=== PATIENT | male | born 1970 | race Caucasian/White ===

== ENCOUNTER 2018-11-26 18:24 | Inpatient (IN) ==
[2018-11-26] MEDS ORDERED: Aspirin 325 MG TABLET PO ONE (20:05)
[2018-11-26 20:25] LABS: Basophils # 0.1 K/mcL (0.0-0.2); Basophils % 0.8 %; Eosinophils # 0.3 K/mcL (0.0-0.6); Hemoglobin 11.6 g/dL (12.9-16.9); Immature Granulocytes % 0.5 % (0-4); Lymphocytes # 3.1 K/mcL (0.6-4.6); Mean Corpuscular HGB Conc 32.2 g/dL (31.6-35.5); Mean Corpuscular Hemoglobin 29.6 pg (28.0-33.3); Mean Corpuscular Volume 91.8 fL (83.0-100.0); Mean Platelet Volume 10.8 fL (9.4-12.4); Monocytes # 0.9 K/mcL (0.0-1.3); Monocytes % 9.4 %; Neutrophils # 5.5 K/mcL (1.6-8.9); Platelet Count 265 K/mcL (140-400); Red Blood Count 3.92 M/mcL (4.19-5.50); Red Cell Distribution Width 13.8 % (11.5-14.5); Segmented Neutrophils % 55.3 %; White Blood Count 9.9 K/mcL (4.3-11.1)
[2018-11-26 20:31] LABS: Prothrombin Time 11.8 Seconds (9.4-12.1)
[2018-11-26 20:46] LABS: BUN/Creatinine Ratio 16 (6-26); Blood Urea Nitrogen 29 mg/dL (6-20); Calcium 9.2 mg/dL (8.6-10.3); Carbon Dioxide 23 mEq/L (23-29); Chloride 106 mEq/L (98-107); Glucose 99 mg/dL (70-105); Osmolality,Calculated 296 (280-300); Potassium 4.1 mEq/L (3.5-5.1); Sodium 140 mEq/L (136-145); Troponin I < 0.03 ng/mL (< 0.04); eGFR For African Americans 50 (> 60); eGFR For Non-African Americans 41 (> 60)
[2018-11-26] MEDS ORDERED: 0.9 % Sodium Chloride 1,000 ML IVC ONE (20:55)
[2018-11-27] MEDS ORDERED: Naloxone 0.4 MG/ML INJ IVP PRN (03:03)
[2018-11-27 04:02] LABS: Basophils # 0.1 K/mcL (0.0-0.2); Basophils % 0.8 %; Eosinophils # 0.3 K/mcL (0.0-0.6); Hematocrit 34.5 % (37.5-50.1); Hemoglobin 10.9 g/dL (12.9-16.9); Immature Granulocytes % 0.4 % (0-4); Lymphocytes % 37.7 %; Mean Corpuscular HGB Conc 31.6 g/dL (31.6-35.5); Mean Corpuscular Hemoglobin 29.6 pg (28.0-33.3); Mean Corpuscular Volume 93.8 fL (83.0-100.0); Mean Platelet Volume 10.8 fL (9.4-12.4); Monocytes # 0.6 K/mcL (0.0-1.3); Monocytes % 7.6 %; Neutrophils # 3.9 K/mcL (1.6-8.9); Platelet Count 237 K/mcL (140-400); Red Blood Count 3.68 M/mcL (4.19-5.50); Red Cell Distribution Width 13.7 % (11.5-14.5); Segmented Neutrophils % 49.5 %; White Blood Count 7.9 K/mcL (4.3-11.1)
[2018-11-27 04:12] LABS: Calcium 8.7 mg/dL (8.6-10.3); Potassium 4.2 mEq/L (3.5-5.1)
[2018-11-27] MEDS ORDERED: 0.9 % Sodium Chloride 1,000 ML IVC SCH (04:15)
[2018-11-27] MEDS ORDERED: D5% in 0.9% NACL 1,000 ML IVC SCH (08:15)
[2018-11-27] MEDS: Aspirin Enteric Coated 81 MG Tablet PO SCH (09:05)
[2018-11-27] MEDS ORDERED: Verapamil 5 MG/2 ML VIAL ONE ×2 (12:10→12:40)
[2018-11-27] MEDS ORDERED: Nitroglycerin 1,000 MCG/10 ML VIAL IV ONE (12:10)
[2018-11-27] MEDS ORDERED: Heparin 1,000 UNITS/500 mL 500 ML ONE (12:10)
[2018-11-27] MEDS ORDERED: *HR* Heparin 10,000 UNIT/10 ML VIAL ONE (12:10)
[2018-11-27] MEDS ORDERED: 0.9 % Sodium Chloride 1,000 ML ONE ×2 (12:10→12:44)
[2018-11-27] MEDS ORDERED: ISOVUE-370 200 ML INFUS..BTL ONE (12:10)
[2018-11-27] MEDS ORDERED: *HR* FentaNYL (PF) 100 MCG/2 ML VIAL ONE (12:40)
[2018-11-27] MEDS ORDERED: *HR* Midazolam HCl 2 MG/2 ML VIAL ONE (12:40)
[2018-11-27] MEDS: Insulin LISPRO 300 UNITS/3 ML VIAL SQ SCH ×2 (16:52→16:58)
[2018-11-27] MEDS: carvediloL 6.25 MG TABLET PO SCH (16:53)
[2018-11-27] MEDS: *HR* Heparin 5,000 UNIT/ML VIAL SQ SCH ×2 (16:53→20:04)
[2018-11-27] MEDS: D5% in 0.9% NACL 1,000 ML IVC SCH (20:04)
[2018-11-28] MEDS: Insulin LISPRO 300 UNITS/3 ML VIAL SQ SCH ×2 (06:11→06:25)
[2018-11-28] MEDS: *HR* Heparin 5,000 UNIT/ML VIAL SQ SCH ×3 (06:21→20:32)
[2018-11-28] MEDS: D5% in 0.9% NACL 1,000 ML IVC SCH (06:25)
[2018-11-28 06:52] LABS: Chol/HDL Ratio 8.2 (0-4.9)
[2018-11-28 08:04] LABS: Potassium 4.3 mEq/L (3.5-5.1)
[2018-11-28] MEDS: carvediloL 6.25 MG TABLET PO SCH ×2 (09:32→16:27)
[2018-11-28] MEDS: Aspirin Enteric Coated 81 MG Tablet PO SCH (09:32)
[2018-11-29 04:47] LABS: Magnesium 1.9 mg/dL (1.6-2.6); Phosphorous 4.7 mg/dL (2.7-4.5); Potassium 4.1 mEq/L (3.5-5.1)
[2018-11-29] MEDS: *HR* Heparin 5,000 UNIT/ML VIAL SQ SCH ×3 (05:32→21:54)
[2018-11-29] MEDS: carvediloL 6.25 MG TABLET PO SCH ×2 (09:57→16:48)
[2018-11-29] MEDS: Aspirin Enteric Coated 81 MG Tablet PO SCH (09:57)
[2018-11-29] MEDS ORDERED: 0.9 % Sodium Chloride 1,000 ML IVC SCH (22:00)
[2018-11-30] MEDS: *HR* Heparin 5,000 UNIT/ML VIAL SQ SCH ×3 (05:39→20:58)
[2018-11-30 06:27] LABS: Basophils # 0.1 K/mcL (0.0-0.2); Basophils % 0.7 %; Eosinophils # 0.4 K/mcL (0.0-0.6); Eosinophils % 3.8 %; Hematocrit 36.9 % (37.5-50.1); Immature Granulocytes % 0.6 % (0-4); Lymphocytes # 2.6 K/mcL (0.6-4.6); Lymphocytes % 27.9 %; Mean Corpuscular HGB Conc 32.5 g/dL (31.6-35.5); Mean Corpuscular Hemoglobin 29.6 pg (28.0-33.3); Mean Corpuscular Volume 90.9 fL (83.0-100.0); Mean Platelet Volume 10.9 fL (9.4-12.4); Monocytes # 0.9 K/mcL (0.0-1.3); Monocytes % 9.7 %; Neutrophils # 5.4 K/mcL (1.6-8.9); Platelet Count 265 K/mcL (140-400); Red Blood Count 4.06 M/mcL (4.19-5.50); Red Cell Distribution Width 13.4 % (11.5-14.5); Segmented Neutrophils % 57.3 %; White Blood Count 9.4 K/mcL (4.3-11.1)
[2018-11-30 06:58] LABS: Calcium 9.8 mg/dL (8.6-10.3); Potassium 4.3 mEq/L (3.5-5.1)
[2018-11-30] MEDS: carvediloL 6.25 MG TABLET PO SCH ×2 (07:57→17:00)
[2018-11-30] MEDS: Aspirin Enteric Coated 81 MG Tablet PO SCH (07:58)
[2018-11-30] MEDS ORDERED: Heparin 1,000 UNITS/500 mL 500 ML ONE ×2 (13:34→15:58)
[2018-11-30] MEDS ORDERED: Nitroglycerin 1,000 MCG/10 ML VIAL IV ONE (13:34)
[2018-11-30] MEDS ORDERED: 0.9 % Sodium Chloride 2,000 ML ONE (13:34)
[2018-11-30] MEDS ORDERED: ISOVUE-370 200 ML INFUS..BTL ONE (13:34)
[2018-11-30] MEDS ORDERED: *HR* Heparin 10,000 UNIT/10 ML VIAL ONE (13:34)
[2018-11-30] MEDS ORDERED: 0.9 % Sodium Chloride 1,000 ML IVC SCH (15:15)
[2018-11-30] MEDS ORDERED: *HR* Midazolam HCl 2 MG/2 ML VIAL ONE (15:33)
[2018-11-30] MEDS ORDERED: *HR* FentaNYL (PF) 100 MCG/2 ML VIAL ONE (15:33)
[2018-11-30] MEDS ORDERED: Verapamil 5 MG/2 ML VIAL ONE (15:35)
[2018-11-30] MEDS ORDERED: Tirofiban 12.5 MG/250ML 12.5 MG/250 ML BAG ONE (15:57)
[2018-11-30] MEDS ORDERED: *HR* Ticagrelor 90 MG TABLET ONE ×2 (16:28→16:38)
[2018-11-30] MEDS ORDERED: Ondansetron 4 MG/2 ML VIAL IVP PRN (16:40)
[2018-11-30] MEDS ORDERED: Tirofiban 12.5 MG/250ML 12.5 MG/250 ML BAG IVC SCH (16:45)
[2018-12-01 05:15] LABS: Basophils # 0.1 K/mcL (0.0-0.2); Basophils % 0.6 %; Eosinophils # 0.2 K/mcL (0.0-0.6); Eosinophils % 1.7 %; Hematocrit 35.9 % (37.5-50.1); Hemoglobin 11.6 g/dL (12.9-16.9); Immature Granulocytes % 0.6 % (0-4); Lymphocytes # 1.9 K/mcL (0.6-4.6); Lymphocytes % 17.4 %; Mean Corpuscular HGB Conc 32.3 g/dL (31.6-35.5); Mean Corpuscular Hemoglobin 29.9 pg (28.0-33.3); Mean Corpuscular Volume 92.5 fL (83.0-100.0); Mean Platelet Volume 10.6 fL (9.4-12.4); Monocytes % 9.3 %; Neutrophils # 7.5 K/mcL (1.6-8.9); Platelet Count 264 K/mcL (140-400); Red Blood Count 3.88 M/mcL (4.19-5.50); Red Cell Distribution Width 13.5 % (11.5-14.5); Segmented Neutrophils % 70.4 %; White Blood Count 10.6 K/mcL (4.3-11.1)
[2018-12-01 05:36] LABS: Calcium 9.1 mg/dL (8.6-10.3); Magnesium 1.9 mg/dL (1.6-2.6); Phosphorous 5.1 mg/dL (2.7-4.5); Potassium 4.3 mEq/L (3.5-5.1)
[2018-12-01] MEDS: *HR* Heparin 5,000 UNIT/ML VIAL SQ SCH (05:38)
[2018-12-01 07:35] VITALS: BP 94/60
[2018-12-01] MEDS ORDERED: Aspirin 81 MG TAB.CHEW PO SCH (09:00)
[2018-12-01] MEDS: carvediloL 6.25 MG TABLET PO SCH (09:29)
== END 2018-12-01 11:05 | disposition home or self-care (01) | DRG 247 ==
LOC: EMEROOARM 18:24 → 2ANU 18:24 → SUATTDRO 11-27 11:18
PROVIDERS: ADMIT Family Medicine; ATTEND Internal Medicine